=== PATIENT | female | born 1980 | race American Indian/Alaskan Native ===

== ENCOUNTER 2017-08-09 00:26 | Emergency (ER) | payer SELFPAY ==
[2017-08-09 01:06] VITALS: BP 148/76
[2017-08-09] MEDS ORDERED: REGLAN ONE (06:19)
[2017-08-09] MEDS ORDERED: BENADRYL ONE (06:19)
[2017-08-09] MEDS ORDERED: BENADRYL IV ONE (06:32)
[2017-08-09] MEDS ORDERED: REGLAN IV ONE (06:32)
--- NOTE | 2017-08-09 06:38 | Emergency Department Report ---
ED Headache HPI - General Chief Complaint: Headache Stated Complaint: BAD HEADACHES Time Seen by Provider: 08/09/17 06:36 Source: patient, family Exam Limitations: no limitations - History of Present Illness Initial Comments: Patient here reports that she's been having headaches on and off that sitting getting worse over time. She said headache is located to the left side of her head and it comes and goes. Today headache is 10 out of 10. Reports sensitivity to light. Denies any nausea vomiting. Denies any neck pain or stiffness. Denies any head trauma. She had headache in the past but today it is different. Patient has not had neurology follow-up nor is she has CT scan in the past. Denies any numbness or tingling to extremities. Denies any history of stroke, high blood pressure or aneurysm. [id number] medication is not helping. Denies any fever or chills. Headache is better rest worse with moving around and light. Timing/Duration: increasing, waxing and waning, other (ongoing and worsening today) Quality: severe, achy Head Injury Location: parietal (left) Recent Head Trauma: frequent headaches Modifying Factors: improves with: exposure to light Associated Symptoms: other (positive photosensitivity). denies: confusion, facial pain, fever/chills, flushing, loss of consciousness, nausea/vomiting, nasal congestion, nasal drainage, numbness in legs/feet, rash, seizures, sinus infection, stiff neck, vision changes, weakness Allergies/Adverse Reactions: Allergies Penicillins Allergy (Verified 08/21/13 16:32) Unknown Home Medications: Ambulatory Orders Fluticasone Propionate [Flonase] 2 sprays NS QDAY #1 bottle 07/10/14 Loratadine [Claritin] 10 mg PO DAILY #30 tablet 07/10/14 Promethazine /Codeine [Phenergan/Codeine 6.25-10 mg/5 ml] 5 ml PO Q6H PRN #150 ml 07/10/14 Sulfamethoxazole/Trimethoprim [Bactrim Ds] 1 each PO BID #20 tablet 07/10/14 predniSONE [Deltasone] 50 mg PO QDAY #5 tab 07/10/14 Acetaminophen/Codeine [Tylenol #3] 1 tab PO Q6H PRN #20 tab 01/28/16 Clindamycin [Clindamycin CAP] 300 mg PO Q6H #28 capsule 01/28/16 Doxycycline [Vibramycin CAP] 100 mg PO Q12HR #20 capsule 01/28/16 ED Review of Systems ROS: Stated complaint: BAD HEADACHES Other details as noted in HPI Comment: All other systems reviewed and negative Constitutional: no symptoms reported Eyes: vision change. denies: eye pain, eye discharge ENT: denies: ear pain, throat pain, congestion Respiratory: no symptoms reported Cardiovascular: denies: chest pain, palpitations, dyspnea on exertion, orthopnea , edema, syncope, paroxysmal nocturnal dyspnea Gastrointestinal: denies: abdominal pain, nausea, vomiting, diarrhea, constipation, hematochezia Genitourinary: denies: dysuria, hematuria Musculoskeletal: denies: back pain, joint swelling, arthralgia, myalgia Skin: denies: rash Neurological: headache. denies: weakness, numbness, paresthesias, confusion, abnormal gait ED Past Medical Hx - Past Medical History Previous Medical History?: Yes Hx Hypertension: Yes (with each except this one thus far) Hx Heart Attack/AMI: No Hx Congestive Heart Failure: No Hx Diabetes: No Hx Deep Vein Thrombosis: No Hx Pulmonary Embolism: No Hx Liver Disease: No Hx Renal Disease: No Hx Sickle Cell Disease: No Hx Headaches / Migraines: No Hx Seizures: No Hx Asthma: No Hx COPD: No Hx Tuberculosis: No Hx HIV: No - Surgical History Past Surgical History?: No - Family History Family history: no significant - Social History Smoking Status: Heavy Tobacco Smoker Substance Use Type: None - Medications Home Medications: Home Medications Medication Instructions Recorded Confirmed Last Taken Type Fluticasone Propionate [Flonase] 2 sprays NS QDAY #1 bottle 07/10/14 Unknown Rx Loratadine [Claritin] 10 mg PO DAILY #30 tablet 07/10/14 Unknown Rx Promethazine /Codeine 5 ml PO Q6H PRN #150 ml 07/10/14 Unknown Rx [Phenergan/Codeine 6.25-10 mg/5 ml] Sulfamethoxazole/Trimethoprim 1 each PO BID #20 tablet 07/10/14 Unknown Rx [Bactrim Ds] predniSONE [Deltasone] 50 mg PO QDAY #5 tab 07/10/14 Unknown Rx Acetaminophen/Codeine [Tylenol #3] 1 tab PO Q6H PRN #20 tab 01/28/16 Unknown Rx Clindamycin [Clindamycin CAP] 300 mg PO Q6H #28 capsule 01/28/16 Unknown Rx Doxycycline [Vibramycin CAP] 100 mg PO Q12HR #20 capsule 01/28/16 Unknown Rx ED Physical Exam - General Limitations: No Limitations General appearance: alert, in no apparent distress - Head Head exam: Present: atraumatic, normocephalic, normal inspection, other (normal exam) - Eye Eye exam: Present: EOMI. Absent: scleral icterus, conjunctival injection Pupils: Present: normal accommodation - ENT ENT exam: Present: normal exam, normal orophraynx, mucous membranes moist, TM's normal bilaterally, normal external ear exam - Neck Neck exam: Present: normal inspection, full ROM, other (no cspine tenderness). Absent: tenderness, meningismus, lymphadenopathy, thyromegaly - Respiratory Respiratory exam: Present: normal lung sounds bilaterally. Absent: respiratory distress, chest wall tenderness, accessory muscle use - Cardiovascular Cardiovascular Exam: Present: normal rhythm, tachycardia, normal heart sounds. Absent: systolic murmur, diastolic murmur - GI/Abdominal GI/Abdominal exam: Present: soft, normal bowel sounds. Absent: distended, tenderness, guarding, rebound, rigid, organomegaly, mass, bruit, pulsatile mass , hernia - Extremities Exam Extremities exam: Present: normal inspection, full ROM, normal capillary refill , other (no CCE, +2 Pulses. ). Absent: tenderness, pedal edema, joint swelling , calf tenderness - Back Exam Back exam: Present: normal inspection, full ROM, other (ambulates without difficulties). Absent: tenderness, CVA tenderness (R), CVA tenderness (L), muscle spasm, paraspinal tenderness, vertebral tenderness, rash noted - Neurological Exam Neurological exam: Present: alert, oriented X3, normal gait, reflexes normal. Absent: motor sensory deficit - Expanded Neurological Exam Expanded Neurological exam: Absent: innattentive, memory loss-remote event, memory loss- recent event, ataxia, receptive aphasia, expressive aphasia, total aphasia, tremor, protecting the airway Patient oriented to: Present: person, place, time Speech: Present: fluid speech Cranial nerves: EOM's Intact: Normal, Gag Reflex: Normal, Tongue Deviation: Normal, Nystagmus: Normal, Facial Sensation: Normal Cerebellar function: Romberg: Normal Upper motor neuron: Pronator Drift: Normal, Sensory Extinction: Normal Sensory exam: Upper Extremity Light Touch: Normal, Upper Extremity Temperature: Normal, UE 2 Point Discrimination: Normal, Lower Extremity Light Touch: Normal, Lower Extremity Temperature: Normal, LE 2 Point Discrimination: Normal Motor strength exam: RUE: 5, LUE: 5, RLE: 5, LLE: 5 DTR: bicep (R): 2+, bicep (L): 2+, tricep (R): 2+, tricep (L): 2+, knee (R): 2+ , knee (L): 2+, ankle (R): 2+, ankle (L): 2+ Best Eye Response (R[place]ledge): (4) open spontaneously Best Motor Response (Victoriano): (6) obeys commands Best Verbal Response ([place]): (5) oriented Victoriano Total: 15 - Psychiatric Psychiatric exam: Present: normal affect, normal mood - Skin Skin exam: Present: warm, dry, intact, normal color. Absent: rash ED Course Vital Signs 08/09/17 08/09/17 08/09/17 01:01 06:38 06:50 Temperature 98 F Pulse Rate 102 H 88 88 Respiratory 18 16 Rate Blood Pressure 148/76 O2 Sat by Pulse 100 99 Oximetry - Reevaluation(s) Reevaluation #1: 08/09/17 06:46 Patient received Benadryl 25 mg IV and Reglan 10 mg IV and voice that her headache has been relieved. Critical care attestation.: If time is entered above; I have spent that time in minutes in the direct care of this critically ill patient, excluding procedure time. ED Disposition Clinical Impression: Care refused by patient, Photosensitivity Headache Qualifiers: Headache type: unspecified Headache chronicity pattern: episodic headache Intractability: not intractable Qualified Code(s): R51 - Headache Disposition: DC-01 TO HOME OR SELFCARE Is pt being admited?: No Does the pt Need Aspirin: No Condition: Stable Instructions: Acute Headache (ED) Additional Instructions: You refused to have U CT scan of the head today if you change your mind he can return to the emergency room. There are many reasons why he could have a headache and you'll need to have a CAT scan since she has never had one and she said that headaches have been getting worse. You can also follow up with primary care physician and if you do not have one he can follow-up with outside Medical Center. You received Benadryl and Reglan IV and said that your headache has been resolved today so, if headache returns, nausea and/or vomiting, blurred vision please return to the emergency room. He can take [id number] Tylenol for headache per dosing chart guidelines Referrals: [facility] [Outside] - 08/09/17 UZMA COX MD [Staff Physician] - 08/10/17 Forms: AMA Form, Work/School Release Form(ED)
== END 2017-08-09 06:50 | disposition home or self-care (01) ==
LOC: ED 00:26
DX: R51 Headache (principal); Z88.0 Allergy status to penicillin; Z72.0 Tobacco use
CPT/HCPCS: 96372; 99282; J1200; J2765

== ENCOUNTER 2017-08-31 19:30 | Emergency (ER) | payer SELFPAY ==
[2017-08-31] MEDS ORDERED: TYLENOL ONE (20:54)
[2017-08-31] MEDS ORDERED: TYLENOL PO ONE (20:55)
--- NOTE | 2017-08-31 22:23 | XRay Report ---
FINAL REPORT PROCEDURE: XR CHEST ROUTINE 2V TECHNIQUE: PA and lateral chest radiographs were obtained. CPT 31397 HISTORY: SOB COMPARISON: No prior studies are available for comparison. FINDINGS: There appears to be minimal patchy alveolar density in the right middle lobe suggesting a small amount of atelectasis. Subsegmental infiltrate needs clinical exclusion. Lungs otherwise are clear. No dense consolidations are identified. No effusions are visualized. Heart size and pulmonary vasculature appear normal. No acute bony abnormalities are seen per IMPRESSION: Minimal patchy density right middle lobe suggesting a small amount of atelectasis. Subsegmental infiltrate needs clinical exclusion. No other abnormality is seen..
[2017-09-01] MEDS ORDERED: TYLENOL ONE (00:59)
[2017-09-01] MEDS ORDERED: TYLENOL PO ONE (01:01)
[2017-09-01] MEDS ORDERED: MOTRIN PO ONE (01:16)
[2017-09-01] MEDS ORDERED: TESSALON PERLES PO ONE (01:16)
[2017-09-01] MEDS ORDERED: DUONEB *Not for PRN Use IH ONE (01:20)
[2017-09-01] MEDS ORDERED: ZITHROMAX PO ONE (01:21)
--- NOTE | 2017-09-01 01:24 | Emergency Department Report ---
- General Chief Complaint: Upper Respiratory Infection Stated Complaint: SOB, HEADACHE Time Seen by Provider: 09/01/17 01:17 Source: patient Mode of arrival: Ambulatory Limitations: No Limitations - History of Present Illness Initial Comments: This is a 37-year-old female nontoxic, well nourished in appearance, no acute signs of distress presents to the ED with c/o of productive cough, wheezing, body aches, rhinorrhea, nasal congestion x1 days. Patient describes productive cough as yellow mucus production. Patient denies any recent travels, long car, recent hospital stays. Patient denies any calf pain or calf tenderness. Patient denies any chest pain, short of breath, fever, chills, nausea, vomiting , hemoptysis, numbness, tingling, headache or stiff neck. PAtient states allergies to PCN. Patient denies significant past medical history. MD Complaint: cough, rhinorrhea, nasal congestion, other (wheezing) -: days(s) (1) Severity: mild Consistency: constant Improves With: nothing Worsens With: nothing Associated Symptoms: rhinorrhea, nasal congestion, cough. denies: fever, chills , myalgias, diaphoresis, headache, sore throat, stiff neck, chest pain, shortness of breath, abdominal pain, vomiting, diarrhea, dysuria, rash, confusion, right sweats, weight loss, epistaxis, hoarseness, ear pain Treatments Prior to Arrival: none - Related Data Previous Rx's Medication Instructions Recorded Last Taken Type Fluticasone Propionate [Flonase] 2 sprays NS QDAY #1 bottle 07/10/14 Unknown Rx Loratadine [Claritin] 10 mg PO DAILY #30 tablet 07/10/14 Unknown Rx Promethazine /Codeine 5 ml PO Q6H PRN #150 ml 07/10/14 Unknown Rx [Phenergan/Codeine 6.25-10 mg/5 ml] Sulfamethoxazole/Trimethoprim 1 each PO BID #20 tablet 07/10/14 Unknown Rx [Bactrim Ds] predniSONE [Deltasone] 50 mg PO QDAY #5 tab 07/10/14 Unknown Rx Acetaminophen/Codeine [Tylenol #3] 1 tab PO Q6H PRN #20 tab 01/28/16 Unknown Rx Clindamycin [Clindamycin CAP] 300 mg PO Q6H #28 capsule 08/18/16 Unknown Rx Doxycycline [Vibramycin CAP] 100 mg PO Q12HR #20 capsule 01/28/16 Unknown Rx ALBUTEROL Inhaler [ProAir HFA 2 puff IH QID PRN #1 inhalation 09/01/17 Unknown Rx Inhaler] Azithromycin [Zithromax Z-MARTY] 250 mg PO DAILY #6 tablet 09/01/17 Unknown Rx predniSONE [Deltasone] 40 mg PO QDAY #5 tab 09/01/17 Unknown Rx Allergies Allergy/AdvReac Type Severity Reaction Status Date / Time Penicillins Allergy Unknown Verified 08/21/13 16:32 ED Review of Systems ROS: Stated complaint: SOB, HEADACHE Other details as noted in HPI Constitutional: denies: chills, fever Eyes: denies: eye pain, eye discharge, vision change ENT: denies: ear pain, throat pain Respiratory: cough, wheezing. denies: shortness of breath Cardiovascular: denies: chest pain, palpitations Endocrine: no symptoms reported Gastrointestinal: denies: abdominal pain, nausea, diarrhea Genitourinary: denies: urgency, dysuria, discharge Musculoskeletal: denies: back pain, joint swelling, arthralgia Skin: denies: rash, lesions Neurological: denies: headache, weakness, paresthesias Psychiatric: denies: anxiety, depression Hematological/Lymphatic: denies: easy bleeding, easy bruising ED Past Medical Hx - Past Medical History Previous Medical History?: Yes Hx Hypertension: Yes (with each except this one thus far) Hx Heart Attack/AMI: No Hx Congestive Heart Failure: No Hx Diabetes: No Hx Deep Vein Thrombosis: No Hx Pulmonary Embolism: No Hx Liver Disease: No Hx Renal Disease: No Hx Sickle Cell Disease: No Hx Headaches / Migraines: No Hx Seizures: No Hx Asthma: No Hx COPD: No Hx Tuberculosis: No Hx HIV: No - Surgical History Past Surgical History?: No - Social History Smoking Status: Former Smoker Substance Use Type: Alcohol - Medications Home Medications: Home Medications Medication Instructions Recorded Confirmed Last Taken Type Fluticasone Propionate [Flonase] 2 sprays NS QDAY #1 bottle 07/10/14 Unknown Rx Loratadine [Claritin] 10 mg PO DAILY #30 tablet 07/10/14 Unknown Rx Promethazine /Codeine 5 ml PO Q6H PRN #150 ml 07/10/14 Unknown Rx [Phenergan/Codeine 6.25-10 mg/5 ml] Sulfamethoxazole/Trimethoprim 1 each PO BID #20 tablet 07/10/14 Unknown Rx [Bactrim Ds] predniSONE [Deltasone] 50 mg PO QDAY #5 tab 07/10/14 Unknown Rx Acetaminophen/Codeine [Tylenol #3] 1 tab PO Q6H PRN #20 tab 01/28/16 Unknown Rx Clindamycin [Clindamycin CAP] 300 mg PO Q6H #28 capsule 01/28/16 Unknown Rx Doxycycline [Vibramycin CAP] 100 mg PO Q12HR #20 capsule 01/28/16 Unknown Rx ALBUTEROL Inhaler [ProAir HFA 2 puff IH QID PRN #1 inhalation 09/01/17 Unknown Rx Inhaler] Azithromycin [Zithromax Z-MARTY] 250 mg PO DAILY #6 tablet 09/01/17 Unknown Rx predniSONE [Deltasone] 40 mg PO QDAY #5 tab 09/01/17 Unknown Rx ED Physical Exam - General Limitations: No Limitations General appearance: alert, in no apparent distress - Head Head exam: Present: atraumatic, normocephalic - Eye Eye exam: Present: normal appearance Pupils: Present: normal accommodation - ENT ENT exam: Present: normal exam, normal orophraynx, mucous membranes moist - Neck Neck exam: Present: normal inspection, full ROM. Absent: tenderness, meningismus, lymphadenopathy, thyromegaly - Respiratory Respiratory exam: Present: normal lung sounds bilaterally, wheezes (bilateral upper and lower lobes). Absent: respiratory distress, rales, rhonchi, stridor, chest wall tenderness, accessory muscle use, decreased breath sounds, prolonged expiratory - Cardiovascular Cardiovascular Exam: Present: regular rate, normal rhythm, normal heart sounds. Absent: irregular rhythm, systolic murmur, diastolic murmur, rubs, gallop - GI/Abdominal GI/Abdominal exam: Present: soft, normal bowel sounds - Extremities Exam Extremities exam: Present: normal inspection, full ROM, normal capillary refill. Absent: calf tenderness - Back Exam Back exam: Present: normal inspection, full ROM - Neurological Exam Neurological exam: Present: alert, oriented X3, normal gait - Psychiatric Psychiatric exam: Present: normal affect, normal mood - Skin Skin exam: Present: warm, dry, intact, normal color. Absent: rash ED Course Vital Signs 08/31/17 20:45 Temperature 98.9 F Pulse Rate 104 H Blood Pressure 108/70 O2 Sat by Pulse 98 Oximetry - Reevaluation(s) Reevaluation #1: 09/01/17 01:28 Patient is speaking in full sentences with no signs of distress noted. ED Medical Decision Making - Medical Decision Making This is a 37-year-old female that presents with pneumonia. Chest x-ray has been obtained and dictated by radiologist with possible PNA. Patient is notified of x-ray results with no questions noted. Due to patient having symptoms of upper respiratory infection and worsening I will treat patient empirically with zpak. Patient was instructed to increase hydration, rest and take Motrin for fever episodes. Patient received motrin and tesslone perrls in the ED. Patient also receeivd a first dose of Azithromycin 500 mg. Patient recevied Solu-medrol 125mg IM and DuoNeb which patient stated symptoms as improved and subsiding. Posttreatment; there is no wheezing present. Vitals stable. Patient is nonfebrile and normal heart rate. Patient was orally hydrated and patient tolerated well known nausea or vomiting. Patient was instructed Follow-up with a primary care doctor in 3-5 days or if symptoms worsen and continue return to emergency room as soon as possible. At time time of discharge, the patient does not seem toxic or ill in appearance. No acute signs of distress noted. Patient agrees to discharge treatment plan of care. No further questions noted by the patient. Critical care attestation.: If time is entered above; I have spent that time in minutes in the direct care of this critically ill patient, excluding procedure time. ED Disposition Clinical Impression: PNA (pneumonia) Qualifiers: Pneumonia type: due to unspecified organism Laterality: right Lung location: middle lobe of lung Qualified Code(s): J18.1 - Lobar pneumonia, unspecified organism Disposition: DC-01 TO HOME OR SELFCARE Is pt being admited?: No Does the pt Need Aspirin: No Condition: Stable Instructions: Bacterial Pneumonia (ED), Azithromycin (By mouth), Prednisone ( By mouth), Albuterol (By breathing) Additional Instructions: Follow-up with a primary care doctor in 3-5 days or if symptoms worsen and continue return to emergency room as soon as possible. Prescriptions: ALBUTEROL Inhaler [ProAir HFA Inhaler] 2 puff IH QID PRN #1 inhalation PRN Reason: Shortness Of Breath Azithromycin [Zithromax Z-MARTY] 250 mg PO DAILY #6 tablet predniSONE [Deltasone] 40 mg PO QDAY #5 tab Referrals: MERRY GONZALEZ MD [Primary Care Provider] - 3-5 Days PRIMARY CARE, [Referring] - 3-5 Days [facility] [place] [Outside] - 3-[address] [facility] [Outside] - 3-5 Days
[2017-09-01 02:06] VITALS: BP 110/71
== END 2017-09-01 02:15 | disposition home or self-care (01) ==
LOC: ED 19:30
DX: J18.1 Lobar pneumonia, unspecified organism (principal); I10 Essential (primary) hypertension; Z87.891 Personal history of nicotine dependence; Z88.0 Allergy status to penicillin
CPT/HCPCS: 71046; 93005; 93010; 94640; 96372; 99283; J2930

== ENCOUNTER 2017-10-23 23:42 | Emergency (ER) | payer SELFPAY ==
[2017-10-24] MEDS ORDERED: FUL-GLO OP ONE (04:43)
[2017-10-24] MEDS ORDERED: TETRACAINE 0.5% OU ONE (04:45)
--- NOTE | 2017-10-24 05:08 | Emergency Department Report ---
ED Eye Problem HPI - General Chief complaint: Eye Problems Stated complaint: LT EYE PAIN Time Seen by Provider: 10/24/17 04:41 Source: patient Mode of arrival: Ambulatory Limitations: No Limitations - History of Present Illness chief complaint: eye pain Onset/Timin -: days(s) Location: left eye Place: home If Injury: other (soft ball to face ) Eye Symptoms: burning, redness, pain, itching, blurry vision Severity: moderate Severity scale (0 -10): 4 If Pain, Quality: burning Consistency: intermittent Treatments Prior to Arrival: none - Related Data Patient Tetanus UTD: Yes (2 yrs ago ) Previous Rx's Medication Instructions Recorded Last Taken Type Fluticasone Propionate [Flonase] 2 sprays NS QDAY #1 bottle 07/10/14 Unknown Rx Loratadine [Claritin] 10 mg PO DAILY #30 tablet 07/10/14 Unknown Rx Promethazine /Codeine 5 ml PO Q6H PRN #150 ml 07/10/14 Unknown Rx [Phenergan/Codeine 6.25-10 mg/5 ml] Sulfamethoxazole/Trimethoprim 1 each PO BID #20 tablet 07/10/14 Unknown Rx [Bactrim Ds] predniSONE [Deltasone] 50 mg PO QDAY #5 tab 07/10/14 Unknown Rx Acetaminophen/Codeine [Tylenol #3] 1 tab PO Q6H PRN #20 tab 01/28/16 Unknown Rx Clindamycin [Clindamycin CAP] 300 mg PO Q6H #28 capsule 01/28/16 Unknown Rx Doxycycline [Vibramycin CAP] 100 mg PO Q12HR #20 capsule 01/28/16 Unknown Rx ALBUTEROL Inhaler [ProAir HFA 2 puff IH QID PRN #1 inhalation 09/01/17 Unknown Rx Inhaler] Azithromycin [Zithromax Z-MARTY] 250 mg PO DAILY #6 tablet 09/01/17 Unknown Rx predniSONE [Deltasone] 40 mg PO QDAY #5 tab 09/01/17 Unknown Rx Cetirizine HCl [Zyrtec] 10 mg PO DAILY #30 tablet 10/24/17 Unknown Rx Ibuprofen 800 mg PO TID PRN #30 tablet 10/24/17 Unknown Rx Polymyxin B Sulf/Trimethoprim 1 drop OP Q4-6H #10 ml 10/24/17 Unknown Rx [Polytrim Eye Drops] Allergies Allergy/AdvReac Type Severity Reaction Status Date / Time Penicillins Allergy Unknown Verified 08/21/13 16:32 ED Review of Systems ROS: Stated complaint: LT EYE PAIN Other details as noted in HPI Constitutional: denies: chills, fever Eyes: eye pain, eye discharge. denies: vision change ENT: denies: ear pain, throat pain Respiratory: denies: cough, shortness of breath, wheezing Cardiovascular: denies: chest pain, palpitations Endocrine: no symptoms reported Gastrointestinal: denies: abdominal pain, nausea, diarrhea Genitourinary: denies: urgency, dysuria, discharge Musculoskeletal: denies: back pain, joint swelling, arthralgia Skin: denies: rash, lesions Neurological: denies: headache, weakness, paresthesias Psychiatric: denies: anxiety, depression Hematological/Lymphatic: denies: easy bleeding, easy bruising ED Past Medical Hx - Past Medical History Previous Medical History?: Yes Hx Hypertension: Yes (with each except this one thus far) Hx Heart Attack/AMI: No Hx Congestive Heart Failure: No Hx Diabetes: No Hx Deep Vein Thrombosis: No Hx Pulmonary Embolism: No Hx Liver Disease: No Hx Renal Disease: No Hx Sickle Cell Disease: No Hx Headaches / Migraines: No Hx Seizures: No Hx Asthma: No Hx COPD: No Hx Tuberculosis: No Hx HIV: No - Surgical History Past Surgical History?: No - Social History Smoking Status: Never Smoker Substance Use Type: None - Medications Home Medications: Home Medications Medication Instructions Recorded Confirmed Last Taken Type Fluticasone Propionate [Flonase] 2 sprays NS QDAY #1 bottle 07/10/14 Unknown Rx Loratadine [Claritin] 10 mg PO DAILY #30 tablet 07/10/14 Unknown Rx Promethazine /Codeine 5 ml PO Q6H PRN #150 ml 07/10/14 Unknown Rx [Phenergan/Codeine 6.25-10 mg/5 ml] Sulfamethoxazole/Trimethoprim 1 each PO BID #20 tablet 07/10/14 Unknown Rx [Bactrim Ds] predniSONE [Deltasone] 50 mg PO QDAY #5 tab 07/10/14 Unknown Rx Acetaminophen/Codeine [Tylenol #3] 1 tab PO Q6H PRN #20 tab 01/28/16 Unknown Rx Clindamycin [Clindamycin CAP] 300 mg PO Q6H #28 capsule 01/28/16 Unknown Rx Doxycycline [Vibramycin CAP] 100 mg PO Q12HR #20 capsule 01/28/16 Unknown Rx ALBUTEROL Inhaler [ProAir HFA 2 puff IH QID PRN #1 inhalation 09/01/17 Unknown Rx Inhaler] Azithromycin [Zithromax Z-MARTY] 250 mg PO DAILY #6 tablet 09/01/17 Unknown Rx predniSONE [Deltasone] 40 mg PO QDAY #5 tab 09/01/17 Unknown Rx Cetirizine HCl [Zyrtec] 10 mg PO DAILY #30 tablet 10/24/17 Unknown Rx Ibuprofen 800 mg PO TID PRN #30 tablet 10/24/17 Unknown Rx Polymyxin B Sulf/Trimethoprim 1 drop OP Q4-6H #10 ml 10/24/17 Unknown Rx [Polytrim Eye Drops] ED Physical Exam - General Limitations: No Limitations General appearance: alert, in no apparent distress - Head Head exam: Present: normocephalic - Expanded Head Exam Expanded Head exam: Present: abrasion. Absent: laceration, contusion, hematoma, racoon eyes, curran's sign, general tenderness, tenderness of temporal artery, CSF rhinorrhea, CSF otorrhea - Eye Eye exam: Present: normal appearance, PERRL, EOMI, conjunctival injection, periorbital tenderness. Absent: periorbital swelling Pupils: Present: normal accommodation - Expanded Eye Exam Expanded Eyelids: Erythema: Left (left corneal abras ), Swelling: Left Pupils: Regular, Round: Bilateral, Reactive: Bilateral Sclera/Conjunctival: Injection: Left Posterior chamber: Deferred: Bilateral Visual acuity (R) = 20/: 30 Visual acuity (L) = 20/: 30 With correction: No IOP (L) in mmH IOP measured with: Tonopen - ENT ENT exam: Present: mucous membranes moist - Neck Neck exam: Present: normal inspection, full ROM. Absent: lymphadenopathy, thyromegaly - Respiratory Respiratory exam: Present: normal lung sounds bilaterally. Absent: respiratory distress - Cardiovascular Cardiovascular Exam: Present: regular rate, normal rhythm. Absent: systolic murmur, diastolic murmur, rubs, gallop - GI/Abdominal GI/Abdominal exam: Present: soft, normal bowel sounds - Rectal Rectal exam: Present: deferred - Extremities Exam Extremities exam: Present: normal inspection - Back Exam Back exam: Present: normal inspection - Neurological Exam Neurological exam: Present: alert, oriented X3, normal gait - Psychiatric Psychiatric exam: Present: normal affect, normal mood - Skin Skin exam: Present: warm, dry, intact, normal color. Absent: rash ED Course Vital Signs 10/24/17 00:18 Temperature 98.4 F Pulse Rate 95 H Blood Pressure 126/64 O2 Sat by Pulse 99 Oximetry ED Medical Decision Making - Medical Decision Making there is a small corneal abrasion , eye exam: left eye tx with tetracaine, flouracen , eyes perrla emoi, left conjuncitivae injected , left eyelid inverted swept and irrigated, doe lamp shows small cornea abrasion at 1 oclock , visual acuity 20/30 bilat plan: polytrim, zyrtec ibuprofen follow up with opthalmology today, pt verbalized agreement and understanding of same. Critical care attestation.: If time is entered above; I have spent that time in minutes in the direct care of this critically ill patient, excluding procedure time. ED Disposition Clinical Impression: Corneal abrasion, left Qualifiers: Encounter type: initial encounter Qualified Code(s): S05.02XA - Injury of conjunctiva and corneal abrasion without foreign body, left eye, initial encounter Conjunctivitis Qualifiers: Conjunctivitis type: acute Acute conjunctivitis type: bacterial Laterality: left Qualified Code(s): H10.32 - Unspecified acute conjunctivitis, left eye Disposition: - TO HOME OR SELFCARE Is pt being admited?: No Does the pt Need Aspirin: No Condition: Good Instructions: Corneal Abrasion (ED), Conjunctivitis (ED) Prescriptions: Cetirizine HCl [Zyrtec] 10 mg PO DAILY #30 tablet Ibuprofen 800 mg PO TID PRN #30 tablet PRN Reason: Pain , Severe (7-10) Polymyxin B Sulf/Trimethoprim [Polytrim Eye Drops] 1 drop OP Q4-6H #10 ml Referrals: PRIMARY CARE, [Primary Care Provider] - 3-5 Days Forms: Work/School Release Form(ED) Time of Disposition: 06:13
[2017-10-24 07:05] VITALS: BP 135/78
== END 2017-10-24 07:04 | disposition home or self-care (01) ==
LOC: ED 23:42
DX: S05.02XA Injury of conjunctiva and corneal abrasion without foreign body, left eye, initial encounter (principal); H10.32 Unspecified acute conjunctivitis, left eye; I10 Essential (primary) hypertension; X58.XXXA Exposure to other specified factors, initial encounter; Y93.89 Activity, other specified; Y92.89 Other specified places as the place of occurrence of the external cause; Y99.8 Other external cause status
CPT/HCPCS: 99282